=== PATIENT | male | born 1975 | race Caucasian/White ===

== ENCOUNTER 2018-04-25 10:30 | Outpatient (CLI) | payer OTHER ==
--- NOTE | 2018-04-25 12:15 | RAD ---
LUMBAR SPINE 2 VIEWS: Date: 04/25/18 HISTORY: Low back pain. COMPARISON: 05/16/17. FINDINGS: Five lumbar-type vertebrae. Left pedicle screws and vertical drea at the L3-[address] No perihardware lucency. Markers associated with interbody fusion material are within the confines of the disc space. Other pedicles are intact. Vertebral body height and alignment maintained. Mild oste ophytosis. IMPRESSION: Stable postoperative appearance of the lumbar spine. POS: [employer]
== END 2018-04-25 10:31 | disposition home or self-care (01) ==
LOC: TBSIIMAG 10:30
PROVIDERS: ATTEND Neurological Surgery
DX: M54.16 Radiculopathy, lumbar region (principal); Z98.1 Arthrodesis status
CPT/HCPCS: 72100